=== PATIENT | female | born 1950 ===

== ENCOUNTER 2024-08-01 20:14 | Inpatient (IN) | payer BC, MEDICAID ==
[~2024-08-01] VITALS: Ht 157.5 cm; Wt 75.8 kg
[2024-08-01 20:16] VITALS: TEMP 98.3
[2024-08-01 20:30] VITALS: PULSE 85; RESP 30; O2SAT 86
[2024-08-01] MEDS: methylPREDNISolone sod succ 125mg/2ml vial IV ONE (20:42)
[2024-08-01] MEDS: normal saline 1000ml 1,000 ML IV ONE (20:54)
[2024-08-01 20:56] LABS: ABG BASE EXCESS -4.7 mmol/L (-2.0-3.0); ABG OXYGEN SATURATION 96.1 % (94.0-98.0); ABG PCO2 (T) 77.6 mmHg (32.0-45.0); ABG PH (T) 7.142 (7.350-7.450); ABG PO2 (T) 101.7 mmHg (83.0-108.0); ALLEN'S TEST Modified; FCOHb 1.2 % (0.5-1.5); FHHb 3.8 % (0.0-5.0); FMetHb 0.1 % (0.0-1.5); FO2Hb 94.9 % (94.0-98.0); MODE MASK - BIPAP; PATIENT TEMPERATURE 36.8; RESPIRATORY RATE 14 b/min; TOTAL HEMOGLOBIN 13.5 G/dl (12.0-16.0)
[2024-08-01 20:58] LABS: BASOPHILS # (AUTO) 0.1 X10'3 (0-0.2); BASOPHILS % (AUTO) 0.4 % (0-1); EOSINOPHILS % (AUTO) 0.1 % (0-6); HEMATOCRIT 43.4 % (35.0-45.0); HEMOGLOBIN 13.6 g/dl (12.0-16.0); LYMPHOCYTES # (AUTO) 0.7 X10'3 (1.1-4.8); LYMPHOCYTES % (AUTO) 5.7 % (21-51); MEAN CORPUSCULAR HEMOGLOBIN 29.1 PG (27.0-31.0); MEAN CORPUSCULAR HGB CONC 31.4 g/dL (33.0-36.5); MEAN CORPUSCULAR VOLUME 92.7 FL (78-98); MEAN PLATELET VOLUME 9.4 FL (7.4-10.4); MONOCYTES # (AUTO) 0.6 X10'3 (0-0.9); MONOCYTES % (AUTO) 5.1 % (2-12); NEUTROPHILS # (AUTO) 11.1 X10'3 (1.8-7.7); NEUTROPHILS % (AUTO) 88.7 % (42-75); PLATELET COUNT 352 X10'3 (140-440); RED BLOOD COUNT 4.69 X10'6 (4.20-5.60); RED CELL DISTRIBUTION WIDTH 16.8 % (11.5-14.5); WHITE BLOOD COUNT 12.5 X10'3 (4.5-11.0)
[2024-08-01] MEDS: albuterol 2.5 MG/3 ML nebule CONTNEB PRN (21:00)
[2024-08-01 21:01] VITALS: PULSE 82; RESP 29; O2SAT 96
[2024-08-01 21:13] LABS: ALBUMIN 3.1 G/DL (3.4-5.0); ANION GAP 11 (8-16); BLOOD UREA NITROGEN 36 MG/DL (7-18); BUN/CREATININE RATIO 18.1 (10.0-20.0); CALCIUM 8.8 MG/DL (8.5-10.1); CHLORIDE 97 MMOL/L (99-107); CREATININE 1.99 MG/DL (0.40-0.90); GLUCOSE 106 MG/DL (70-104); POTASSIUM 5.6 MMOL/L (3.5-5.1); SODIUM 138 MMOL/L (135-145); TOTAL CARBON DIOXIDE 29.7 MMOL/L (24-32); eCRCL 24 ML/MIN; eGFR 25 ML/MIN
[2024-08-01] MEDS: CefTRIAXone/D5W-Rocephin 1gm 50 ML IV ONE (21:14)
[2024-08-01 21:15] LABS: PRO BRAIN NATRIURETIC PEPTIDE 22178 PG/ML (0-125)
[2024-08-01] MEDS: azithromycin/NS 500mg/250ml 250 ML IV ONE (21:41)
[2024-08-01] MEDS: NORepinephrine 8mg/ 250ml NS 250 ML IV SCH (22:14)
[2024-08-01] MEDS: etomidate 2mg/ml inj. IV ONE (22:34)
[2024-08-01] MEDS: rocuronium 10mg/ml inj IV ONE (22:34)
[2024-08-01] MEDS: midazolam 100mg in NS 100ml 100 ML IV PRN (22:53)
[2024-08-01 22:54] VITALS: BP 116/58; PULSE 76; RESP 18; O2SAT 96
[2024-08-01 23:23] VITALS: RESP 28
[2024-08-01 23:46] LABS: ABG BASE EXCESS -1.4 mmol/L (-2.0-3.0); ABG HCO3 24.4 mmol/L (21.0-28.0); ABG OXYGEN SATURATION 95.9 % (94.0-98.0); ABG PCO2 (T) 46.6 mmHg (32.0-45.0); ABG PO2 (T) 85.3 mmHg (83.0-108.0); FCOHb 0.9 % (0.5-1.5); FHHb 4.1 % (0.0-5.0); FMetHb 0.1 % (0.0-1.5); FO2Hb 94.9 % (94.0-98.0); MODE VENT - PRVC; PATIENT TEMPERATURE 37.8; PEEP 5 cm H2O; RESPIRATORY RATE 16 b/min; TIDAL VOLUME 450 mL; TOTAL HEMOGLOBIN 13.1 G/dl (12.0-16.0)
[2024-08-02] VITALS (35 sets, daily range): BP systolic 102–135; BP diastolic 42–102; PULSE 52–102; RESP 14–34; O2SAT 83–100
[2024-08-02] MEDS: fentaNYL/PF 50MCG/1 ML 2ML syringe IV PRN ×2 (00:10→00:57)
[2024-08-02] MEDS ORDERED: magnesium hydroxide 30ml (MOM) UD suspension PO PRN (00:55)
[2024-08-02] MEDS: LidoCAINE 2% Topical Jelly 11mL syringe (UROJET) TOP ONE (00:55)
[2024-08-02] MEDS ORDERED: acetaminophen 325mg tablet PO PRN ×2 (00:55)
[2024-08-02] MEDS ORDERED: ondansetron/PF 4mg/2ml inj IV PRN (00:55)
[2024-08-02] MEDS ORDERED: morphine 4 MG/ML inj SYRINge IV PRN (00:55)
[2024-08-02] MEDS ORDERED: morphine 2 MG/ML inj. syringe IV PRN (00:55)
[2024-08-02] MEDS: FENTANYL-0.9 % NACL/PF 100 ML IV SCH (01:10)
[2024-08-02] MEDS: amiodarone 50MG/ML inj IV ONE (01:48)
[2024-08-02 03:39] LABS: ABG BASE EXCESS -1.7 mmol/L (-2.0-3.0); ABG HCO3 25.7 mmol/L (21.0-28.0); ABG OXYGEN SATURATION 96.6 % (94.0-98.0); ABG PCO2 (T) 58.2 mmHg (32.0-45.0); ABG PH (T) 7.269 (7.350-7.450); ABG PO2 (T) 99.9 mmHg (83.0-108.0); FCOHb 0.9 % (0.5-1.5); FHHb 3.4 % (0.0-5.0); FMetHb 0.1 % (0.0-1.5); FO2Hb 95.6 % (94.0-98.0); MODE VENT - PRVC; PATIENT TEMPERATURE 38.3; PEEP 10 cm H2O; RESPIRATORY RATE 20 b/min; TIDAL VOLUME 450 mL; TOTAL HEMOGLOBIN 12.9 G/dl (12.0-16.0)
[2024-08-02 03:43] LABS: OXYGEN SATURATION (MIXED VEN) 81.4 % (60-80); PO2 MIXED VENOUS (TEMP COR) 54.9 mmHg (35-46)
[2024-08-02] MEDS: furosemide 10 MG/1 ML 10ml inj IV ONE (04:18)
[2024-08-02 04:56] LABS: BASOPHILS % (AUTO) 0.1 % (0-1); EOSINOPHILS % (AUTO) 0 % (0-6); LYMPHOCYTES # (AUTO) 0.7 X10'3 (1.1-4.8); MEAN CORPUSCULAR HGB CONC 31.3 g/dL (33.0-36.5); MONOCYTES # (AUTO) 0.7 X10'3 (0-0.9); RED BLOOD COUNT 4.09 X10'6 (4.20-5.60)
[2024-08-02 04:57] LABS: HEMATOCRIT 37.5 % (35.0-45.0); HEMOGLOBIN 11.7 g/dl (12.0-16.0); LYMPHOCYTES % (AUTO) 3.9 % (21-51); MEAN CORPUSCULAR HEMOGLOBIN 28.7 PG (27.0-31.0); MEAN CORPUSCULAR VOLUME 91.6 FL (78-98); MEAN PLATELET VOLUME 9.8 FL (7.4-10.4); MONOCYTES % (AUTO) 4.2 % (2-12); NEUTROPHILS # (AUTO) 15.7 X10'3 (1.8-7.7); NEUTROPHILS % (AUTO) 91.8 % (42-75); PLATELET COUNT 337 X10'3 (140-440); RED CELL DISTRIBUTION WIDTH 16.6 % (11.5-14.5); WHITE BLOOD COUNT 17.1 X10'3 (4.5-11.0)
[2024-08-02 05:08] LABS: ASPARTATE AMINO TRANSFERASE 4 U/L (10-37)
[2024-08-02 05:26] LABS: ALBUMIN 2.6 G/DL (3.4-5.0); ALBUMIN/GLOBULIN RATIO 0.7 (1.1-1.5); ALKALINE PHOSPHATASE 133 IU/L (46-116); ANION GAP 11 (8-16); BILIRUBIN,TOTAL 0.7 MG/DL (0.1-1.0); BLOOD UREA NITROGEN 40 MG/DL (7-18); BUN/CREATININE RATIO 17.7 (10.0-20.0); CALCIUM 7.7 MG/DL (8.5-10.1); CHLORIDE 102 MMOL/L (99-107); CREATININE 2.26 MG/DL (0.40-0.90); GLUCOSE 158 MG/DL (70-104); POTASSIUM 4.8 MMOL/L (3.5-5.1); SODIUM 140 MMOL/L (135-145); TOTAL CARBON DIOXIDE 27.4 MMOL/L (24-32); TOTAL PROTEIN 6.1 G/DL (6.4-8.2); eCRCL 18 ML/MIN; eGFR 21 ML/MIN
[2024-08-02 05:28] LABS: ALANINE AMINOTRANSFERASE 2363 U/L (12-78)
[2024-08-02] MEDS ORDERED: rocuronium 10mg/ml inj IV ONE (09:00)
[2024-08-02] MEDS ORDERED: AMLO5TAB16 PO (09:48)
[2024-08-02] MEDS ORDERED: METO-384 PO (09:48)
[2024-08-02] MEDS ORDERED: ROSU10TA72 PO (09:48)
[2024-08-02] MEDS ORDERED: ALB0.5UD IH (09:48)
[2024-08-02] MEDS ORDERED: POTA-188 PO (09:48)
[2024-08-02] MEDS ORDERED: LEVO100T9 PO (09:48)
[2024-08-02] MEDS ORDERED: TIOT18CA3 INH (09:48)
[2024-08-02] MEDS ORDERED: BUDE10.32 PO (09:48)
[2024-08-02] MEDS ORDERED: METF-1203 PO (09:48)
[2024-08-02] MEDS ORDERED: FURO40TA4 PO (09:48)
[2024-08-02] MEDS ORDERED: ASPI81TA52 PO (09:48)
[2024-08-02] MEDS: nystatin 15 GM powder TP SCH (11:22)
[2024-08-02] MEDS ORDERED: DEXTROSE 15 GM of carb/4 tabs (each vial/BOTTLE has 4 tablets) PO PRN ×2 (11:35)
[2024-08-02] MEDS ORDERED: glucagon, human recombinant 1mg kit SUBCUT PRN (11:35)
[2024-08-02] MEDS ORDERED: dextrose 50%-water 50ml dispensing syringe IV PRN ×2 (11:35)
[2024-08-02] MEDS ORDERED: acetaminophen 325mg/10.15ml oral unit dose solution OGT PRN ×2 (11:38)
[2024-08-02] MEDS ORDERED: magnesium hydroxide 30ml (MOM) UD suspension OGT PRN (11:38)
[2024-08-02] MEDS ORDERED: DEXTROSE 15 GM of carb/4 tabs (each vial/BOTTLE has 4 tablets) OGT PRN ×2 (11:39)
[2024-08-02] MEDS ORDERED: INSULIN LISPRO 100 UNIT/ML INSULN.PEN MULTI-DOSE SQ SCH (12:00)
[2024-08-02] MEDS: dexamethasone sod phosphate 10mg/ml inj IV SCH (12:40)
[2024-08-02] MEDS: pantoprazole 40 MG vial IV SCH (12:40)
[2024-08-02 13:59] LABS: HEMOGLOBIN A1C 6.1 % (4.5-6.2)
[2024-08-02] MEDS ORDERED: CHOL100046 PO (14:14)
[2024-08-02] MEDS: heparin, porcine 5000 units/ml vial SQ SCH (14:48)
[2024-08-02] MEDS: INSULIN LISPRO 100 UNIT/ML INSULN.PEN MULTI-DOSE SQ SCH (14:55)
[2024-08-02] MEDS: furosemide 10 MG/1 ML 10ml inj IV SCH (19:23)
[2024-08-03] VITALS (35 sets, daily range): BP systolic 100–139; BP diastolic 47–73; PULSE 44–86; RESP 20–21; O2SAT 89–97
[2024-08-03 03:02] LABS: ABG BASE EXCESS 1.6 mmol/L (-2.0-3.0); ABG HCO3 25.7 mmol/L (21.0-28.0); ABG OXYGEN SATURATION 96.3 % (94.0-98.0); ABG PCO2 (T) 37.9 mmHg (32.0-45.0); ABG PH (T) 7.447 (7.350-7.450); ALLEN'S TEST Modified; FCOHb 0.8 % (0.5-1.5); FHHb 3.7 % (0.0-5.0); FMetHb 0.3 % (0.0-1.5); FO2Hb 95.2 % (94.0-98.0); MODE CMV PRVC IT 0.6; PATIENT TEMPERATURE 36.6; PEEP 10 cm H2O; RESPIRATORY RATE 20 b/min; TIDAL VOLUME 450 mL; TOTAL HEMOGLOBIN 12.8 G/dl (12.0-16.0)
[2024-08-03 03:08] LABS: BASOPHILS % (AUTO) 0.1 % (0-1); EOSINOPHILS % (AUTO) 0 % (0-6); HEMATOCRIT 36.8 % (35.0-45.0); HEMOGLOBIN 11.6 g/dl (12.0-16.0); LYMPHOCYTES # (AUTO) 1.9 X10'3 (1.1-4.8); LYMPHOCYTES % (AUTO) 7.7 % (21-51); MEAN CORPUSCULAR HGB CONC 31.5 g/dL (33.0-36.5); MEAN CORPUSCULAR VOLUME 88.8 FL (78-98); MEAN PLATELET VOLUME 9.6 FL (7.4-10.4); MONOCYTES # (AUTO) 0.6 X10'3 (0-0.9); MONOCYTES % (AUTO) 2.3 % (2-12); NEUTROPHILS # (AUTO) 22.3 X10'3 (1.8-7.7); NEUTROPHILS % (AUTO) 89.9 % (42-75); PLATELET COUNT 323 X10'3 (140-440); RED BLOOD COUNT 4.14 X10'6 (4.20-5.60); RED CELL DISTRIBUTION WIDTH 16.4 % (11.5-14.5); WHITE BLOOD COUNT 24.9 X10'3 (4.5-11.0)
[2024-08-03 04:08] LABS: ALBUMIN 2.3 G/DL (3.4-5.0); ALBUMIN/GLOBULIN RATIO 0.7 (1.1-1.5); ALKALINE PHOSPHATASE 146 IU/L (46-116); ANION GAP 12 (8-16); BILIRUBIN,TOTAL 0.8 MG/DL (0.1-1.0); BLOOD UREA NITROGEN 59 MG/DL (7-18); BUN/CREATININE RATIO 21.9 (10.0-20.0); CALCIUM 8.1 MG/DL (8.5-10.1); CHLORIDE 101 MMOL/L (99-107); CREATININE 2.69 MG/DL (0.40-0.90); GLUCOSE 177 MG/DL (70-104); SODIUM 141 MMOL/L (135-145); TOTAL CARBON DIOXIDE 27.9 MMOL/L (24-32); TOTAL PROTEIN 5.6 G/DL (6.4-8.2); eCRCL 15 ML/MIN; eGFR 17 ML/MIN
[2024-08-03 04:13] LABS: ALANINE AMINOTRANSFERASE 2099 U/L (12-78); ASPARTATE AMINO TRANSFERASE 1840 U/L (10-37)
[2024-08-03] MEDS: CefTRIAXone/D5W-Rocephin 1gm 50 ML IV ONE (10:43)
[2024-08-03] MEDS: azithromycin/NS 500mg/250ml 250 ML IV ONE (11:39)
[2024-08-03] MEDS: COMMUNICATION ORDER 1 EA MISC MC ONE (19:16)
[2024-08-04] VITALS (34 sets, daily range): BP systolic 93–136; BP diastolic 43–72; PULSE 44–61; RESP 20–21; O2SAT 91–97
[2024-08-04 02:37] LABS: ABG BASE EXCESS 4.1 mmol/L (-2.0-3.0); ABG HCO3 28.8 mmol/L (21.0-28.0); ABG PCO2 (T) 41.3 mmHg (32.0-45.0); ABG PH (T) 7.457 (7.350-7.450); ABG PO2 (T) 72.4 mmHg (83.0-108.0); ALLEN'S TEST Modified; FCOHb 0.9 % (0.5-1.5); FMetHb 0.3 % (0.0-1.5); FO2Hb 94.8 % (94.0-98.0); MODE CMV PRVC IT 0.6; PATIENT TEMPERATURE 35.8; PEEP 10 cm H2O; RESPIRATORY RATE 20 b/min; TIDAL VOLUME 450 mL; TOTAL HEMOGLOBIN 12.9 G/dl (12.0-16.0)
[2024-08-04 03:26] LABS: BASOPHILS % (AUTO) 0.1 % (0-1); EOSINOPHILS % (AUTO) 0 % (0-6); HEMATOCRIT 37.4 % (35.0-45.0); HEMOGLOBIN 11.9 g/dl (12.0-16.0); LYMPHOCYTES % (AUTO) 9.2 % (21-51); MEAN CORPUSCULAR HEMOGLOBIN 28.2 PG (27.0-31.0); MEAN CORPUSCULAR HGB CONC 31.8 g/dL (33.0-36.5); MEAN CORPUSCULAR VOLUME 88.5 FL (78-98); MEAN PLATELET VOLUME 9.6 FL (7.4-10.4); MONOCYTES % (AUTO) 4.7 % (2-12); NEUTROPHILS # (AUTO) 18.7 X10'3 (1.8-7.7); PLATELET COUNT 307 X10'3 (140-440); RED BLOOD COUNT 4.23 X10'6 (4.20-5.60); RED CELL DISTRIBUTION WIDTH 16.7 % (11.5-14.5); WHITE BLOOD COUNT 21.8 X10'3 (4.5-11.0)
[2024-08-04 03:46] LABS: ALBUMIN 2.1 G/DL (3.4-5.0); ALBUMIN/GLOBULIN RATIO 0.6 (1.1-1.5); ALKALINE PHOSPHATASE 144 IU/L (46-116); ANION GAP 7 (8-16); ASPARTATE AMINO TRANSFERASE 699 U/L (10-37); BILIRUBIN,TOTAL 0.6 MG/DL (0.1-1.0); BLOOD UREA NITROGEN 77 MG/DL (7-18); BUN/CREATININE RATIO 27.7 (10.0-20.0); CALCIUM 7.7 MG/DL (8.5-10.1); CHLORIDE 105 MMOL/L (99-107); CREATININE 2.78 MG/DL (0.40-0.90); MAGNESIUM 2.2 MG/DL (1.5-2.4); PHOSPHORUS 4.4 MG/DL (2.3-4.5); POTASSIUM 3.8 MMOL/L (3.5-5.1); SODIUM 143 MMOL/L (135-145); TOTAL CARBON DIOXIDE 31.2 MMOL/L (24-32); TOTAL PROTEIN 5.4 G/DL (6.4-8.2); eCRCL 15 ML/MIN; eGFR 17 ML/MIN
[2024-08-04 03:53] LABS: GLUCOSE 187 MG/DL (70-104)
[2024-08-04 03:58] LABS: ALANINE AMINOTRANSFERASE 1630 U/L (12-78)
[2024-08-04] MEDS: insulin regular, human U-100 10ml vial - multi-dose SQ PRN (07:54)
[2024-08-04] MEDS: azithromycin/NS 500mg/250ml 250 ML IV SCH (08:41)
[2024-08-04] MEDS: CefTRIAXone/D5W-Rocephin 1gm 50 ML IV SCH (08:41)
[2024-08-05] VITALS (35 sets, daily range): BP systolic 82–153; BP diastolic 41–82; PULSE 35–103; RESP 19–21; O2SAT 91–99
[2024-08-05 02:57] LABS: BASOPHILS % (AUTO) 0.1 % (0-1); EOSINOPHILS % (AUTO) 0 % (0-6); HEMATOCRIT 37.8 % (35.0-45.0); LYMPHOCYTES # (AUTO) 1.7 X10'3 (1.1-4.8); LYMPHOCYTES % (AUTO) 11.1 % (21-51); MEAN CORPUSCULAR HEMOGLOBIN 28.4 PG (27.0-31.0); MEAN CORPUSCULAR HGB CONC 31.6 g/dL (33.0-36.5); MEAN PLATELET VOLUME 10.3 FL (7.4-10.4); MONOCYTES % (AUTO) 6.3 % (2-12); NEUTROPHILS # (AUTO) 12.7 X10'3 (1.8-7.7); NEUTROPHILS % (AUTO) 82.5 % (42-75); PLATELET COUNT 284 X10'3 (140-440); RED BLOOD COUNT 4.21 X10'6 (4.20-5.60); RED CELL DISTRIBUTION WIDTH 17.5 % (11.5-14.5); WHITE BLOOD COUNT 15.4 X10'3 (4.5-11.0)
[2024-08-05 03:17] LABS: ALBUMIN 2.1 G/DL (3.4-5.0); ALBUMIN/GLOBULIN RATIO 0.6 (1.1-1.5); ALKALINE PHOSPHATASE 149 IU/L (46-116); ANION GAP 2 (8-16); ASPARTATE AMINO TRANSFERASE 329 U/L (10-37); BILIRUBIN,TOTAL 0.5 MG/DL (0.1-1.0); BLOOD UREA NITROGEN 74 MG/DL (7-18); BUN/CREATININE RATIO 34.6 (10.0-20.0); C-REACTIVE PROTEIN 3.32 MG/DL (0.0-0.5); CALCIUM 8.1 MG/DL (8.5-10.1); CHLORIDE 109 MMOL/L (99-107); CREATININE 2.14 MG/DL (0.40-0.90); GLUCOSE 177 MG/DL (70-104); MAGNESIUM 2.3 MG/DL (1.5-2.4); PHOSPHORUS 3.8 MG/DL (2.3-4.5); POTASSIUM 4.2 MMOL/L (3.5-5.1); PREALBUMIN 13.4 MG/DL (19-36); SODIUM 145 MMOL/L (135-145); TOTAL CARBON DIOXIDE 33.8 MMOL/L (24-32); TOTAL PROTEIN 5.4 G/DL (6.4-8.2); eCRCL 19 ML/MIN; eGFR 23 ML/MIN
[2024-08-05 03:23] LABS: ALANINE AMINOTRANSFERASE 1219 U/L (12-78)
[2024-08-05 03:40] LABS: ABG BASE EXCESS 4.9 mmol/L (-2.0-3.0); ABG HCO3 30.4 mmol/L (21.0-28.0); ABG OXYGEN SATURATION 92.6 % (94.0-98.0); ABG PCO2 (T) 48.6 mmHg (32.0-45.0); ABG PH (T) 7.414 (7.350-7.450); ABG PO2 (T) 60.1 mmHg (83.0-108.0); ALLEN'S TEST Modified; FCOHb 1.2 % (0.5-1.5); FHHb 7.3 % (0.0-5.0); FMetHb 0.3 % (0.0-1.5); FO2Hb 91.2 % (94.0-98.0); MODE VENT-AC PRVC; PATIENT TEMPERATURE 36.9; PEEP 10 cm H2O; RESPIRATORY RATE 20 b/min; TIDAL VOLUME 450 mL
[2024-08-05] MEDS: furosemide 10 MG/1 ML 10ml inj IV SCH (12:24)
[2024-08-05 13:05] LABS: ABG BASE EXCESS 1.2 mmol/L (-2.0-3.0); ABG HCO3 26.9 mmol/L (21.0-28.0); ABG PCO2 (T) 47.2 mmHg (32.0-45.0); ABG PH (T) 7.375 (7.350-7.450); ABG PO2 (T) 77.5 mmHg (83.0-108.0); ALLEN'S TEST POSITIVE; FCOHb 1.2 % (0.5-1.5); FHHb 4.9 % (0.0-5.0); FMetHb 0.3 % (0.0-1.5); FO2Hb 93.6 % (94.0-98.0); MODE VENT - PRVC; PATIENT TEMPERATURE 37.1; PEEP 10 cm H2O; RESPIRATORY RATE 20 b/min; TIDAL VOLUME 400 mL; TOTAL HEMOGLOBIN 13.1 G/dl (12.0-16.0)
[2024-08-05] MEDS: insulin regular, human U-100 10ml vial - multi-dose SQ SCH (14:21)
[2024-08-05] MEDS: erythromycin ethylsuccinate 200mg/5mL ORAL suspension PO SCH (17:37)
[2024-08-05] MEDS: epiNEPHrine inj 5 MG in normal saline 250ml IV soln 245 ML IV SCH ×2 (21:43→22:10)
[2024-08-05 22:35] LABS: ALBUMIN 1.9 G/DL (3.4-5.0); ANION GAP 3 (8-16); BLOOD UREA NITROGEN 83 MG/DL (7-18); BUN/CREATININE RATIO 37.1 (10.0-20.0); CALCIUM 7.1 MG/DL (8.5-10.1); CHLORIDE 111 MMOL/L (99-107); CREATININE 2.24 MG/DL (0.40-0.90); GLUCOSE 261 MG/DL (70-104); MAGNESIUM 2.3 MG/DL (1.5-2.4); POTASSIUM 4.4 MMOL/L (3.5-5.1); SODIUM 146 MMOL/L (135-145); TOTAL CARBON DIOXIDE 31.7 MMOL/L (24-32); eCRCL 18 ML/MIN; eGFR 22 ML/MIN
[2024-08-06] VITALS (33 sets, daily range): BP systolic 94–138; BP diastolic 47–93; PULSE 41–153; RESP 19–28; O2SAT 93–100
[2024-08-06 02:57] LABS: BASOPHILS % (AUTO) 0.2 % (0-1); EOSINOPHILS % (AUTO) 0 % (0-6); HEMATOCRIT 39.5 % (35.0-45.0); HEMOGLOBIN 12.3 g/dl (12.0-16.0); LYMPHOCYTES # (AUTO) 1.7 X10'3 (1.1-4.8); LYMPHOCYTES % (AUTO) 8.8 % (21-51); MEAN CORPUSCULAR HEMOGLOBIN 28.1 PG (27.0-31.0); MEAN CORPUSCULAR HGB CONC 31.1 g/dL (33.0-36.5); MEAN CORPUSCULAR VOLUME 90.3 FL (78-98); MONOCYTES # (AUTO) 1.8 X10'3 (0-0.9); MONOCYTES % (AUTO) 9.5 % (2-12); NEUTROPHILS # (AUTO) 15.6 X10'3 (1.8-7.7); NEUTROPHILS % (AUTO) 81.5 % (42-75); PLATELET COUNT 293 X10'3 (140-440); RED BLOOD COUNT 4.37 X10'6 (4.20-5.60); RED CELL DISTRIBUTION WIDTH 16.9 % (11.5-14.5); WHITE BLOOD COUNT 19.2 X10'3 (4.5-11.0)
[2024-08-06 03:07] LABS: ALANINE AMINOTRANSFERASE 919 U/L (12-78); ALBUMIN 2.2 G/DL (3.4-5.0); ALBUMIN/GLOBULIN RATIO 0.6 (1.1-1.5); ALKALINE PHOSPHATASE 164 IU/L (46-116); ANION GAP 9 (8-16); ASPARTATE AMINO TRANSFERASE 140 U/L (10-37); BILIRUBIN,TOTAL 0.6 MG/DL (0.1-1.0); BLOOD UREA NITROGEN 84 MG/DL (7-18); BUN/CREATININE RATIO 37.3 (10.0-20.0); CALCIUM 8.4 MG/DL (8.5-10.1); CHLORIDE 107 MMOL/L (99-107); CREATININE 2.25 MG/DL (0.40-0.90); GLUCOSE 344 MG/DL (70-104); MAGNESIUM 2.4 MG/DL (1.5-2.4); PHOSPHORUS 4.3 MG/DL (2.3-4.5); POTASSIUM 4.1 MMOL/L (3.5-5.1); SODIUM 147 MMOL/L (135-145); TOTAL CARBON DIOXIDE 31.5 MMOL/L (24-32); TOTAL PROTEIN 5.9 G/DL (6.4-8.2); eCRCL 18 ML/MIN; eGFR 21 ML/MIN
[2024-08-06 04:12] LABS: ABG BASE EXCESS 3.1 mmol/L (-2.0-3.0); ABG HCO3 30.6 mmol/L (21.0-28.0); ABG OXYGEN SATURATION 92.9 % (94.0-98.0); ABG PCO2 (T) 57.8 mmHg (32.0-45.0); ABG PH (T) 7.337 (7.350-7.450); ABG PO2 (T) 66.4 mmHg (83.0-108.0); ALLEN'S TEST Modified; FCOHb 0.9 % (0.5-1.5); FO2Hb 92.1 % (94.0-98.0); MODE PRVC; PEEP 10 cm H2O; RESPIRATORY RATE 20 b/min; TIDAL VOLUME 450 mL; TOTAL HEMOGLOBIN 13.3 G/dl (12.0-16.0)
[2024-08-06 08:36] LABS: C DIFF ANTIGEN NEGATIVE (NEGATIVE); C DIFF SPECIMEN=DIARRHEA? ACCEPTABLE; C DIFFICILE TOXINS A&B NEGATIVE (Neg)
[2024-08-06] MEDS: midazolam 100mg in NS 100ml 100 ML IV PRN (08:39)
[2024-08-06] MEDS: amiodarone 150mg/dext, iso-os 100 ML IV ONE (10:34)
[2024-08-06] MEDS: amiodarone/D5 360MG/200ML BAG 200 ML IV SCH (10:41)
[2024-08-06] MEDS: insulin glargine (Lantus) pen - multi-dose SQ SCH (13:38)
[2024-08-07] VITALS (33 sets, daily range): BP systolic 102–135; BP diastolic 51–68; PULSE 42–87; RESP 18–20; O2SAT 91–97
[2024-08-07 02:41] LABS: BASOPHILS % (AUTO) 0.1 % (0-1); EOSINOPHILS % (AUTO) 0 % (0-6); LYMPHOCYTES # (AUTO) 1.8 X10'3 (1.1-4.8); LYMPHOCYTES % (AUTO) 12.8 % (21-51); MEAN PLATELET VOLUME 10.2 FL (7.4-10.4); MONOCYTES # (AUTO) 1.2 X10'3 (0-0.9); MONOCYTES % (AUTO) 8.3 % (2-12); NEUTROPHILS # (AUTO) 11.1 X10'3 (1.8-7.7); NEUTROPHILS % (AUTO) 78.8 % (42-75); PLATELET COUNT 243 X10'3 (140-440); WHITE BLOOD COUNT 14.1 X10'3 (4.5-11.0)
[2024-08-07 02:54] LABS: ALANINE AMINOTRANSFERASE 624 U/L (12-78); ALBUMIN 2.1 G/DL (3.4-5.0); ALBUMIN/GLOBULIN RATIO 0.6 (1.1-1.5); ALKALINE PHOSPHATASE 140 IU/L (46-116); ANION GAP 5 (8-16); ASPARTATE AMINO TRANSFERASE 59 U/L (10-37); BILIRUBIN,TOTAL 0.5 MG/DL (0.1-1.0); BLOOD UREA NITROGEN 88 MG/DL (7-18); BUN/CREATININE RATIO 51.2 (10.0-20.0); CALCIUM 8.1 MG/DL (8.5-10.1); CHLORIDE 108 MMOL/L (99-107); CREATININE 1.72 MG/DL (0.40-0.90); GLUCOSE 327 MG/DL (70-104); PHOSPHORUS 4.1 MG/DL (2.3-4.5); POTASSIUM 3.9 MMOL/L (3.5-5.1); SODIUM 149 MMOL/L (135-145); TOTAL CARBON DIOXIDE 36.3 MMOL/L (24-32); TOTAL PROTEIN 5.7 G/DL (6.4-8.2); eCRCL 24 ML/MIN; eGFR 29 ML/MIN
[2024-08-07 03:01] LABS: HEMATOCRIT 37.7 % (35.0-45.0); HEMOGLOBIN 12.1 g/dl (12.0-16.0); MEAN CORPUSCULAR VOLUME 89.5 FL (78-98); RED BLOOD COUNT 4.21 X10'6 (4.20-5.60); RED CELL DISTRIBUTION WIDTH 16.3 % (11.5-14.5)
[2024-08-07 03:02] LABS: MEAN CORPUSCULAR HEMOGLOBIN 28.7 PG (27.0-31.0)
[2024-08-07 04:18] LABS: ABG BASE EXCESS 8.5 mmol/L (-2.0-3.0); ABG HCO3 36.3 mmol/L (21.0-28.0); ABG OXYGEN SATURATION 95.1 % (94.0-98.0); ABG PCO2 (T) 61.8 mmHg (32.0-45.0); ABG PH (T) 7.381 (7.350-7.450); ABG PO2 (T) 71.1 mmHg (83.0-108.0); ALLEN'S TEST Modified; FCOHb 0.8 % (0.5-1.5); FHHb 4.8 % (0.0-5.0); FMetHb 0.3 % (0.0-1.5); FO2Hb 94.1 % (94.0-98.0); MODE PRVC; PATIENT TEMPERATURE 35.7; PEEP 10 cm H2O; RESPIRATORY RATE 20 b/min; TIDAL VOLUME 450 mL; TOTAL HEMOGLOBIN 13.3 G/dl (12.0-16.0)
[2024-08-07 23:39] LABS: ABG BASE EXCESS 12.5 mmol/L (-2.0-3.0); ABG HCO3 37.7 mmol/L (21.0-28.0); ABG OXYGEN SATURATION 95.4 % (94.0-98.0); ABG PCO2 (T) 51.8 mmHg (32.0-45.0); ABG PH (T) 7.482 (7.350-7.450); ABG PO2 (T) 74.1 mmHg (83.0-108.0); ALLEN'S TEST POSITIVE; FCOHb 0.9 % (0.5-1.5); FHHb 4.5 % (0.0-5.0); FMetHb 0.3 % (0.0-1.5); FO2Hb 94.3 % (94.0-98.0); MODE VENT - PRVC; PATIENT TEMPERATURE 37.7; PEEP 10 cm H2O; RESPIRATORY RATE 20 b/min; TIDAL VOLUME 450 mL; TOTAL HEMOGLOBIN 13.5 G/dl (12.0-16.0)
[2024-08-08] VITALS (32 sets, daily range): BP systolic 95–141; BP diastolic 54–102; PULSE 52–114; RESP 20; O2SAT 90–98
[2024-08-08 02:46] LABS: BASOPHILS % (AUTO) 0.1 % (0-1); EOSINOPHILS % (AUTO) 0 % (0-6); HEMATOCRIT 40.3 % (35.0-45.0); HEMOGLOBIN 12.8 g/dl (12.0-16.0); LYMPHOCYTES # (AUTO) 1.7 X10'3 (1.1-4.8); LYMPHOCYTES % (AUTO) 12.5 % (21-51); MEAN CORPUSCULAR HEMOGLOBIN 28.5 PG (27.0-31.0); MEAN CORPUSCULAR HGB CONC 31.7 g/dL (33.0-36.5); MEAN CORPUSCULAR VOLUME 89.9 FL (78-98); MEAN PLATELET VOLUME 10.2 FL (7.4-10.4); MONOCYTES # (AUTO) 1.2 X10'3 (0-0.9); MONOCYTES % (AUTO) 8.7 % (2-12); NEUTROPHILS # (AUTO) 10.5 X10'3 (1.8-7.7); NEUTROPHILS % (AUTO) 78.7 % (42-75); PLATELET COUNT 244 X10'3 (140-440); RED BLOOD COUNT 4.49 X10'6 (4.20-5.60); WHITE BLOOD COUNT 13.3 X10'3 (4.5-11.0)
[2024-08-08 03:12] LABS: ALANINE AMINOTRANSFERASE 432 U/L (12-78); ALBUMIN 2.2 G/DL (3.4-5.0); ALBUMIN/GLOBULIN RATIO 0.6 (1.1-1.5); ALKALINE PHOSPHATASE 137 IU/L (46-116); ANION GAP 4 (8-16); ASPARTATE AMINO TRANSFERASE 30 U/L (10-37); BILIRUBIN,TOTAL 0.8 MG/DL (0.1-1.0); BLOOD UREA NITROGEN 96 MG/DL (7-18); BUN/CREATININE RATIO 58.2 (10.0-20.0); CALCIUM 8.5 MG/DL (8.5-10.1); CHLORIDE 107 MMOL/L (99-107); CREATININE 1.65 MG/DL (0.40-0.90); GLUCOSE 269 MG/DL (70-104); MAGNESIUM 1.9 MG/DL (1.5-2.4); PHOSPHORUS 3.1 MG/DL (2.3-4.5); POTASSIUM 3.8 MMOL/L (3.5-5.1); PREALBUMIN 24.2 MG/DL (19-36); SODIUM 153 MMOL/L (135-145); TOTAL PROTEIN 6.1 G/DL (6.4-8.2); eCRCL 25 ML/MIN; eGFR 31 ML/MIN
[2024-08-08 03:18] LABS: TOTAL CARBON DIOXIDE 41.9 MMOL/L (24-32)
[2024-08-08 04:21] LABS: ABG BASE EXCESS 16.1 mmol/L (-2.0-3.0); ABG HCO3 42.2 mmol/L (21.0-28.0); ABG OXYGEN SATURATION 95.4 % (94.0-98.0); ABG PCO2 (T) 57.4 mmHg (32.0-45.0); ABG PH (T) 7.485 (7.350-7.450); ABG PO2 (T) 74.2 mmHg (83.0-108.0); ALLEN'S TEST POSITIVE; FCOHb 0.9 % (0.5-1.5); FHHb 4.5 % (0.0-5.0); FMetHb 0.3 % (0.0-1.5); FO2Hb 94.3 % (94.0-98.0); MODE VENT - PRVC; PATIENT TEMPERATURE 37.5; PEEP 10 cm H2O; RESPIRATORY RATE 20 b/min; TIDAL VOLUME 450 mL; TOTAL HEMOGLOBIN 13.7 G/dl (12.0-16.0)
[2024-08-09] VITALS (21 sets, daily range): BP systolic 105–148; BP diastolic 52–82; PULSE 59–114; RESP 7–22; O2SAT 69–97
[2024-08-09 03:50] LABS: BASOPHILS % (AUTO) 0.3 % (0-1); EOSINOPHILS % (AUTO) 0 % (0-6); HEMATOCRIT 41.5 % (35.0-45.0); HEMOGLOBIN 12.9 g/dl (12.0-16.0); LYMPHOCYTES # (AUTO) 2.4 X10'3 (1.1-4.8); LYMPHOCYTES % (AUTO) 18.8 % (21-51); MEAN CORPUSCULAR HEMOGLOBIN 28.3 PG (27.0-31.0); MEAN CORPUSCULAR VOLUME 91.2 FL (78-98); MEAN PLATELET VOLUME 10.2 FL (7.4-10.4); MONOCYTES # (AUTO) 1.2 X10'3 (0-0.9); MONOCYTES % (AUTO) 9.7 % (2-12); NEUTROPHILS # (AUTO) 8.9 X10'3 (1.8-7.7); NEUTROPHILS % (AUTO) 71.2 % (42-75); PLATELET COUNT 193 X10'3 (140-440); RED BLOOD COUNT 4.55 X10'6 (4.20-5.60); WHITE BLOOD COUNT 12.5 X10'3 (4.5-11.0)
[2024-08-09 04:11] LABS: ALANINE AMINOTRANSFERASE 282 U/L (12-78); ALBUMIN 2.3 G/DL (3.4-5.0); ALBUMIN/GLOBULIN RATIO 0.6 (1.1-1.5); ALKALINE PHOSPHATASE 122 IU/L (46-116); ASPARTATE AMINO TRANSFERASE 20 U/L (10-37); BILIRUBIN,TOTAL 0.5 MG/DL (0.1-1.0); BLOOD UREA NITROGEN 106 MG/DL (7-18); BUN/CREATININE RATIO 66.3 (10.0-20.0); CHLORIDE 109 MMOL/L (99-107); GLUCOSE 228 MG/DL (70-104); MAGNESIUM 2.2 MG/DL (1.5-2.4); PHOSPHORUS 4.1 MG/DL (2.3-4.5); POTASSIUM 3.5 MMOL/L (3.5-5.1); eCRCL 26 ML/MIN; eGFR 32 ML/MIN
[2024-08-09 04:25] LABS: ANION GAP -1 (8-16)
[2024-08-09 04:28] LABS: SODIUM 157 MMOL/L (135-145); TOTAL CARBON DIOXIDE 49.1 MMOL/L (24-32)
[2024-08-09] MEDS: morphine 10mg/ml inj. IV PRN (11:43)
[2024-08-09] MEDS: LORazepam 2 mg/ml vial IV PRN (11:43)
[2024-08-09 11:49] LABS: ABG BASE EXCESS 18.7 mmol/L (-2.0-3.0); ABG OXYGEN SATURATION 95.9 % (94.0-98.0); ABG PCO2 (T) 46.4 mmHg (32.0-45.0); ABG PH (T) 7.584 (7.350-7.450); ABG PO2 (T) 68.2 mmHg (83.0-108.0); ALLEN'S TEST POSITIVE; FCOHb 1.2 % (0.5-1.5); FMetHb 0.3 % (0.0-1.5); FO2Hb 94.5 % (94.0-98.0); PATIENT TEMPERATURE 36.8; PEEP 10 cm H2O; RESPIRATORY RATE 20 b/min; TIDAL VOLUME 450 mL
== END 2024-08-09 12:38 | DRG 870 ==
LOC: ER 20:14 → ED HOLD 08-02 01:01 → CICU 2S 08-02 01:35
PROVIDERS: ADMIT Internal Medicine Pulmonary Disease; ATTEND Internal Medicine Pulmonary Disease
PROC: 0BH17EZ Insertion of Endotracheal Airway into Trachea, Via Natural or Artificial Opening (ICD-10-PCS; principal; 2024-08-02)
PROC: 5A1955Z Respiratory Ventilation, Greater than 96 Consecutive Hours (ICD-10-PCS; 2024-08-02)
DX: A41.89 Other specified sepsis (principal); I50.33 Acute on chronic diastolic (congestive) heart failure; U07.1 COVID-19; J12.82 Pneumonia due to coronavirus disease 2019; R65.21 Severe sepsis with septic shock; J80 Acute respiratory distress syndrome; E87.29 Other acidosis; J44.0 Chronic obstructive pulmonary disease with (acute) lower respiratory infection; J44.1 Chronic obstructive pulmonary disease with (acute) exacerbation; I48.92 Unspecified atrial flutter; N17.9 Acute kidney failure, unspecified; E11.65 Type 2 diabetes mellitus with hyperglycemia; R57.0 Cardiogenic shock; E03.9 Hypothyroidism, unspecified; B36.9 Superficial mycosis, unspecified; I48.91 Unspecified atrial fibrillation
CPT/HCPCS: 36415; 36600; 71045; 80048; 80053; 82803; 82810; 82948; 83036; 83605; 83735; 83880; 84100; 84134; 84145; 84484; 85018; 85025; 86140; 87040; 87081; 87324; 87449; 87502; 87503; 87811; 93005; 93306; 94002; 94003; 94640; 94760; 94799; 96365; 96375; 99291; A4314; A6154; A6209; A6212; A6213; A6250; A6449; A7015; C1751; C1758; G0378; J0171; J0282; J0456; J0696; J1100; J1644; J1815; J1940; J2060; J2274; J2470; J2919; J3010; J3490; J7030; J7050